=== PATIENT | female | born 1980 | race Caucasian/White ===

== ENCOUNTER 2018-02-21 20:38 | Emergency (ER) | payer BC ==
[~2018-02-21] VITALS: Ht 165.1 cm; Wt 65.8 kg
[2018-02-21 20:48] VITALS: BP_SYST 130
[2018-02-21 22:40] VITALS: BP_SYST 123
== END 2018-02-21 20:57 | disposition home or self-care (01) ==
LOC: SED 20:38
DX: S80.12XA Contusion of left lower leg, initial encounter (principal); W22.8XXA Striking against or struck by other objects, initial encounter; Y93.89 Activity, other specified; Y92.89 Other specified places as the place of occurrence of the external cause; Y99.8 Other external cause status
CPT/HCPCS: 93971; 99284

== ENCOUNTER 2021-05-15 17:49 | Emergency (ER) | payer BC ==
[~2021-05-15] VITALS: Ht 165.1 cm; Wt 56.7 kg
[2021-05-15 17:50] VITALS: BP_SYST 140
[2021-05-15 18:16] VITALS: BP_SYST 140
[2021-05-15] MEDS ORDERED: DIPH-TET-PERTUS Vaccine 0.5 ML VIAL (ADACEL) I.M. ONE (18:30)
[2021-05-15] MEDS ORDERED: NAPR-1172 PO (18:57)
[2021-05-15] MEDS ORDERED: CEPH-548 PO (18:57)
== END 2021-05-15 19:02 | disposition home or self-care (01) ==
LOC: SED 17:49
DX: S90.111A Contusion of right great toe without damage to nail, initial encounter (principal); L60.0 Ingrowing nail; Z79.899 Other long term (current) drug therapy; W22.8XXA Striking against or struck by other objects, initial encounter; Y93.89 Activity, other specified; Y92.89 Other specified places as the place of occurrence of the external cause; Y99.8 Other external cause status
CPT/HCPCS: 90715; 99283

== ENCOUNTER 2022-12-16 12:04 | Emergency (ER) | payer BC ==
[~2022-12-16] VITALS: Ht 165.1 cm; Wt 65.8 kg
[~2022-12-16 12:04] MED LIST: CEPH-548 PO; NAPR-1172 PO
[2022-12-16 12:10] VITALS: BP_SYST 126
[2022-12-16 12:44] LABS: BILIRUBIN,URINE NEGATIVE (NEGATIVE); BLOOD, URINE NEGATIVE (NEGATIVE); CLARITY/URINE CLEAR (CLEAR); COLOR,URINE YELLOW (YELLOW); GLUCOSE,URINE NEGATIVE (NEGATIVE); KETONES,URINE NEGATIVE (NEGATIVE); LEUKOCYTE ESTERASE ,URINE TRACE (NEGATIVE); NITRITE, URINE NEGATIVE (NEGATIVE); PROTEIN URINE NEGATIVE (NEGATIVE); UROBILINOGEN,URINE 0.2 (0.2-1.0)
[2022-12-16 12:57] VITALS: BP_SYST 137
[2022-12-16 13:01] LABS: BASOPHILS % (AUTO) 0.1 % (0.0-2.0); EOSINOPHILS # (AUTO) 0.1 K/uL (0.0-0.4); EOSINOPHILS % (AUTO) 1.4 % (0.0-4.0); HEMATOCRIT 41.8 % (36-48); HEMOGLOBIN 14.4 g/dL (12.0-16.0); LYMPHOCYTES # (AUTO) 1.8 K/uL (1.0-5.5); LYMPHOCYTES % (AUTO) 28.8 % (20.5-51.5); MEAN CORPUSCULAR HEMOGLOBIN 30 pg (27-31); MEAN CORPUSCULAR HGB CONC 35 % (32-36); MEAN CORPUSCULAR VOLUME 86 fL (79.0-98.0); MONOCYTES # (AUTO) 0.4 K/uL (0.0-1.0); MONOCYTES % (AUTO) 7.1 % (1.7-9.3); NEUTROPHILS # (AUTO) 3.9 K/uL (1.8-7.7); NEUTROPHILS % (AUTO) 62.6 % (40.0-70.0); PLATELET COUNT (AUTO) 230 K/uL (130-430); RED BLOOD CELL COUNT(AUTO) 4.86 MIL/uL (4.2-6.2); RED CELL DISTRIBUTION WIDTH 13.3 % (9.0-15.0); WHITE BLOOD COUNT (AUTO) 6.3 K/uL (4.8-10.8)
[2022-12-16 13:13] LABS: ANION GAP 7 (5-15); CALCIUM 8.5 mg/dL (8.4-11.0); CHLORIDE 105 mmol/L (98-107); CREATININE 0.64 mg/dL (0.55-1.30); GFR AFRICAN AMERICAN 130 mL/min (>90); GLUCOSE 93 mg/dL (70-99); UREA NITROGEN, BLOOD 12 mg/dL (8-21)
[2022-12-16 13:17] LABS: ALANINE AMINOTRANSFERASE 24 U/L (12-78); ALBUMIN 3.9 g/dL (3.4-4.8); AMYLASE 64 U/L (0-100); ASPARTATE AMINOTRANSFERASE 15 U/L (10-37); LIPASE 115 U/L (73-393); TOTAL BILIRUBIN 0.6 mg/dL (0.0-1.0)
[2022-12-16 13:20] LABS: C-REACTIVE PROTEIN QUANT < 0.2 mg/dL (0-0.5)
[2022-12-16 13:49] LABS: BACTERIA,URINE FEW /HPF (None Seen); RBC,URINE 0-3 /HPF (0-3); URINE AMORPHOUS PHOSPHATES 1+ /HPF (None Seen)
[2022-12-16] MEDS ORDERED: NITR-85 PO (13:50)
[2022-12-16] MEDS ORDERED: PHEN-726 PO (13:50)
== END 2022-12-16 14:45 | disposition home or self-care (01) ==
LOC: SED 12:04
DX: R10.30 Lower abdominal pain, unspecified (principal); Z79.899 Other long term (current) drug therapy
CPT/HCPCS: 36415; 76376; 80053; 81000; 81025; 82150; 83605; 83690; 84703; 85025; 86140; 99284

== ENCOUNTER 2024-02-23 13:03 | Emergency (ER) | payer BC ==
[~2024-02-23] VITALS: Ht 165.1 cm; Wt 65.8 kg
[~2024-02-23 13:03] MED LIST changes: +NITR-85 PO; +PHEN-726 PO
[2024-02-23 13:12] VITALS: BP_SYST 145; PULSE 94; RESP 18; TEMP 99.1; O2SAT 98
[2024-02-23] MEDS ORDERED: DICL50TA9 PO (14:21)
[2024-02-23] MEDS ORDERED: ZAN4 PO (14:21)
[2024-02-23 14:52] VITALS: BP_SYST 145; PULSE 94; RESP 18; TEMP 99.1; O2SAT 98
== END 2024-02-23 14:56 | disposition home or self-care (01) ==
LOC: SED 13:03
DX: M54.50 Low back pain, unspecified (principal); R20.8 Other disturbances of skin sensation; Z79.899 Other long term (current) drug therapy; Z79.2 Long term (current) use of antibiotics
CPT/HCPCS: 72131; 81025; 99284